=== PATIENT | male | born 1965 | race Caucasian/White ===

== ENCOUNTER 2022-11-19 08:44 | Emergency (ER) | payer BC ==
[~2022-11-19] VITALS: Ht 182.9 cm; Wt 104.3 kg
[2022-11-19 08:54] VITALS: BP 145/89
[2022-11-19] MEDS ORDERED: ATEN25 PO (09:01)
== END 2022-11-19 11:35 | disposition home or self-care (01) ==
LOC: ER 08:44
DX: S93.401A Sprain of unspecified ligament of right ankle, initial encounter (principal); X50.1XXA Overexertion from prolonged static or awkward postures, initial encounter
CPT/HCPCS: 73610; 73630; 96372; 99283-25; J1885